=== PATIENT | female | born 1960 | race Two or more races ===

== ENCOUNTER → 2016-10-23 12:08 | Outpatient (CLI) | payer OTHER | END | disposition home or self-care (01) | LOC: D.US 12:08 | DX: I73.9 Peripheral vascular disease, unspecified (principal) ==

== ENCOUNTER → 2019-11-22 18:59 | Outpatient (CLI) | payer OTHER ==
[2019-05-28 09:45] VITALS: BMI 38.5
[~2019-11-22 18:59] MED LIST: MELOXICAM TAB 15M PO; OMEPRAZOLE CAP 20M PO; PERCOCET 5-3251 TAB PO; VISTARIL50 MG PO; VITAMIN D10000 UNI1 PO; ZOFRAN ODT4 MG/UDTAB PO
== END | disposition home or self-care (01) ==
LOC: D.LABREF 18:59
PROVIDERS: ATTEND Orthopaedic Surgery
DX: M17.11 Unilateral primary osteoarthritis, right knee (principal)

== ENCOUNTER 2019-11-26 08:54 | Observation (INO) | payer OTHER ==
[~2019-11-26] VITALS: Ht 160 cm; Wt 98.2 kg
--- NOTE | ~2019-11-26 | HEMODYNAMI ---
PATIENT:DANIEL BOUDREAUX MEDICAL RECORD: [id number] : 58 LOCATION:[facility] D.1211 ADMISSION DATE: 12/21/19 Generatedon:12/21/201915:38 Patient name: DANIEL BOUDREAUX Patient #: [id number] SSN: : 1960 Date of study: 12/21/2019 Page: Of Hemodynamic Procedure Report Patient Data Patient Demographics Procedure consent was obtained First Name: DANIEL Gender: Female Last Name: KANIKA : 1960 Patient #: [id number] Age: 59 year(s) Race: Other Additional ID: [id number] Contact details [address]: [address] [place] [address] State: [place] City: [place] Zip code: [address] Past Medical History Allergies: No known allergies Admission Admission Data Admission Date: 12/21/2019 Admission Time: 8:40 Arrival Date: 12/21/2019 Arrival Time: 0:00 Room #: D.1211 Height (in.): 62.99 BSA: 2 (m2) Height (cm.): 160 BMI: 38.28 (kg/m2) Weight (lbs.): 216.05 Weight (kg.): 98 Lab Results Lab Result Date: 12/21/2019 Lab Result Time: 0:00 Biochemistry Name Units Result Min Max BUN mg/dl 15 --(--*-)-- 7 18 Creatinine mg/dl 0.8 --(-*--)-- 0.6 1.3 eGFR ml/min 76.85896 *-(----)-- 90 120 NONAFRICAN CBC Name Units Result Min Max Hematocrit % 41.1 -*(----)-- 42 54 Hemoglobin g/dl 13.3 -*(----)-- 13.5 17.5 Procedure Procedure Types Cath Procedure Diagnostic Procedure LHC LHC w/Coronaries Procedure Description Procedure Date Procedure Date: 12/21/2019 Procedure Start Time: 15:25 Procedure End Time: 15:35 Procedure Staff Name Function Dimitri Corbin MD Performing Physician Ana Gonzalez, RN Nurse Vicky Patel RT Scrub Zahra Chau RT Monitor Indication Abnormal ECG Procedure Data Cath Procedure Fluoroscopy Diagnostic fluoroscopy Total fluoroscopy Time: 1 time: 1 min min Diagnostic fluoroscopy Total fluoroscopy dose: 391 dose: 391 mGy mGy Contrast Material Contrast Material Type Amount (ml) Isovue 300 51 Entry Location Entry Primary Successful Side Size Upsize Upsize Entry Closure Succes sful Closure Location (Fr) 1 (Fr) 2 (Fr) Remarks Device Remarks Femoral Right 5 Fr Exoseal artery Estimated blood loss: 5 ml Diagnostic catheters Device Type Used For End Catheter Placement MULTIPACK JL 4.0 5Fr Left Coronary catheter Angiography MULTIPACK 3DRC 5Fr Right Coronary catheter Angiography MULTIPACK Pigtail 5 Fr LV Angiography catheter Procedure Complications No complications Procedure Medications Medication Administration Route Dosage Oxygen etCO2 Nasal cannula 2 l/min Heparin Flush Bag added to field 2 bags (1000units/500ml NS) Lidocaine 2% added to field 20 0.9% NaCl I.V. 100 ml/hr Fentanyl I.V. 25 mcg Versed I.V. 0.5 mg Hemodynamics Rest BSA: 2 (m2) HGB: 13.3 (g/dl) O2 Consumption: Estimated: 205.16 (ml/min) O2 Consu mption indexed: Estimated:102.58 (ml/min/m) Heart Rate: 91 (bpm) Pressure Samples Time Site Value (mmHg) Purpose Heart Use Rate(bpm) 15:31 LV 115/17,21 Snapshot 91 15:31 AO 123/82(99) Pullback 93 Gradients Valve Time Site Site 2 Mean SEP/DFP Peak To Heart Use 1 (mmHg) (sec/min) Peak Rate (mmHg) (bpm) Aortic 15:31 LV AO 44 14 93 123/82(99) Calculations Valve P-P Mean Valve Index Valve Source Name Gradient Area Flow (cm2) Aortic 44 44 Snapshots Pre Cath Intra NCS Post Cath Vital Signs Time Heart Resp SPO2 etCO2 NIBP (mmHg) Rhythm Pain Sedation Rate (ipm) (%) (mmHg) Status Level (bpm) 15:17:29 91 15 97 38.1 126/76(99) NSR 0 (11) 10(A) , No pain 15:21:59 93 11 99 40.3 124/80(100) NSR 0 (11) 10(A) , No pain 15:26:32 88 16 100 41.1 116/73(98) NSR 0 (11) 9(A) , No pain 15:30:58 96 13 99 29.8 127/76(102) NSR 0 (11) 9(A) , No pain 15:35:30 89 14 98 34.3 126/76(104) NSR 0 (11) 9(A) , No pain Medications Time Medication Route Dose Verified Delivered Reason Notes Eff ectiveness by by 15:14:49 Oxygen etCO2 2 Ana Ana for low 02 Nasal l/min Carlos Gonzalez sats cannula RN RN 15:14:57 Heparin Flush added 2 Ana Ana used for Bag to bags Carlos Gonzalez procedure (1000units/500ml field RN RN NS) 15:15:06 Lidocaine 2% added 20ml Ana Dimitri for local to vial [facility] anesthetic field STANLEY PEÑA 15:15:30 0.9% NaCl I.V. 100 Ana Ana Per ml/hr Carlos Gonzalez, physician RN RN 15:25:04 Fentanyl I.V. 25 Ana Ana for mcg Carlos Gonzalez, sedation RN RN 15:25:10 Versed I.V. 0.5 Ana Ana for mg Carlos Gonzalez, sedation RN instant printer operator Log Time Note 14:43:10 Informed consent obtained and on chart 14:43:22 Patient Height : 62.99 inches 14:43:27 Patient Weight : 216.05 lbs 14:43:33 Arrival Date: 12/21/2019 12:00:00 AM 14:44:08 Indication : Abnormal ECG 14:45:07 Lab Result : BUN 15 mg/dl 14:45:07 Lab Result : Hematocrit 41.1 % 14:45:07 Lab Result : eGFR NONAFRICAN 76.12570 ml/min 14:45:07 Lab Result : Creatinine 0.8 mg/dl 14:45:07 Lab Result : Hemoglobin 13.3 g/dl 14:45:15 Time tracking: Regular hours (M-F 7:00 - 5:00) 14:45:20 Procedure Status Urgent Heart Cath (IP). 14:45:26 Ana Gonzalez RN sent for patient. Start room use. 14:45:38 Patient allergic to No known allergies 15:09:01 Patient received from Other to CCL 1 Alert and oriented. Tansferred to table in Supine position. 15:09:02 Warm blankets applied, and karl hugger turned on for patient comfort. 15:09:03 Correct patient and procedure confirmed by team. 15:09:03 ECG and BP/O2 sat monitors applied to patient. 15:09:04 Pre-procedure instructions explained to patient. 15:09:04 Pre-op teaching completed and patient verbalized understanding. 15:09:08 H&P Date Dictated: 12/21/2019 Within 30 days and on chart.. 15:14:49 Oxygen 2 l/min etCO2 Nasal cannula was administered by Ana Gonzalez RN; for low 02 sats; Verbal order read back and verified. 15:14:57 Heparin Flush Bag (1000units/500ml NS) 2 bags added to field was administered by Ana Gonzalez RN; used for procedure; Verbal order read back and verified. 15:15:06 Lidocaine 2% 20ml vial added to field was administered by Dimitri Corbin MD; for local anesthetic; Verbal order read back and verified. 15:15:30 0.9% NaCl 100 ml/hr I.V. was administered by Ana Gonzalez RN; Per physician; Verbal order read back and verified. 15:15:56 Vital chart was started 15:15:58 Baseline sample Acquired. 15:16:01 Rhythm: sinus rhythm 15:16:02 Full Disclosure recording started 15:16:24 Family in waiting room. 15:16:25 Patient NPO since Midnight. 15:16:26 Is the patient allergic to Iodine/contrast media? No. 15:16:28 Is patient on blood thinner?No 15:16:29 Patient diabetic? No. 15:16:36 Previous problem with sedation/anesthesia? No ? 15:16:38 Snore? Yes 15:16:38 Sleep apnea? No 15:16:40 Deviated septum? No 15:16:41 Opens mouth fully? Yes 15:16:41 Sticks out tongue? Yes 15:16:43 Airway obstruction? No ? 15:16:44 Dentures? No ? 15:16:48 Pre procedure: right posterior tibial pulse 2+ Normal; easily identifiable; not easily obliterated 15:16:50 Patient pain scale 0/10 ?. 15:16:55 IV patent on arrival in left forearm with 0.9% NaCl at [facility]. 15:16:58 Lab results completed and on chart. 15:17:01 Right groin area was prepped with chlora-prep and draped in sterile fashion 15:17:02 Alarms reviewed by R. N. 15:17:02 Sharps counted by scrub and verified by R.N. 15:17:05 Use device set Femoral Dx 15:17:06 ACIST Syringe (77005) opened to sterile field. 15:17:06 Bag Decanter (2002S) opened to sterile field. 15:17:07 Medline Cath Pack ([id number]) opened to sterile field. 15:17:08 ACIST Hand Control (52034) opened to sterile field. 15:17:08 ACIST Manifold (32752) opened to sterile field. 15:17:08 DIAGNOSTIC Multipack 5Fr catheter set (CI3153) opened to sterile field. 15:17:09 Tegaderm 4 x 4 (1626W) opened to sterile field. 15:17:10 SHEATH 5FR [place] (RNE750) opened to sterile field. 15:17:11 EMERALD Guide Wire (074-208) opened to sterile field. 15:20:12 Physician arrived 15:20:12 --------ALL STOP TIME OUT------ 15:20:13 Final Timeout: patient, procedure, and site verified with staff and physician. All members of the team are in agreement. 15:20:14 Right groin site verified by team. 15:20:16 Fire Safety Assessment: A--An alcohol-based skin anteseptic being used preoperatively., C--Open oxygen or nitrous oxide is being used., D--An ESU, laser, or fiber-optic light is being used. 15:20:19 Physical assessment completed. ASA score P 2 - A patient with mild systemic disease as per Dimitri Corbin MD. 15:21:38 2) 60-89 Mildly reduced kidney function, and other findings (as for stage 1) point to kidney disease. 15:21:46 Maximum allowable contrast dose (3.7 X eGFR X 0.75)213 ml. 15:21:49 Sedation plan: IV Moderate Sedation Medication:Versed, Fentanyl 15:24:16 Procedure started. 15:25:04 Fentanyl 25 mcg I.V. was administered by Ana Gonzalez RN; for sedation; Verbal order read back and verified. 15:25:10 Versed 0.5 mg I.V. was administered by Ana Gonzalez RN; for sedation; Verbal order read back and verified. 15:25:46 Local anesthetic to right femoral artery with Lidocaine 2% by Dimitri Corbin MD.INITIAL ACCESS ONLY 15:26:07 A 5 Fr sheath was inserted into the Right Femoral artery 15:27:13 A MULTIPACK JL 4.0 5Fr catheter was advanced over the wire and used for Left Coronary Angiography. 15:28:02 LCA angiography performed. 15:28:05 Injector settings: Ml/sec: 3, Volume: 6, 15:29:23 Catheter removed. 15:29:27 A MULTIPACK 3DRC 5Fr catheter was advanced over the wire and used for Right Coronary Angiography. 15:30:17 RCA angiography performed. 15:30:22 Injector settings: Ml/sec: 3, Volume: 6, 15:30:25 Catheter removed. 15:30:28 ACCDominant side:Left 15:30:33 A MULTIPACK Pigtail 5 Fr catheter was advanced over the wire and used for LV Angiography. 15:31:17 LV hemodynamics recorded. 15:31:19 LV gram done using MONREAL 15:31:21 Injector settings: Ml/sec: 5, Volume: 15, 15:31:27 EF : 55 % 15:31:36 EXOSEAL 5Fr (EX500) opened to sterile field. 15:31:59 Sheath removed intact; hemostasis achieved with Exoseal to the Right Femoral artery. 15:32:00 Procedure ended.(Physican Out) 15:32:11 Fluoroscopy time 01.00 minutes. 15:32:16 Fluoroscopy dose: 391 mGy 15:32:16 Flurop Dose total: 391 15:32:22 Dose Area Product 70626 mGy/cm. 15:32:29 Contrast amount:Isovue 300 51ml. 15:32:40 Maximum allowable dose exceeded? No. 15:32:41 Sharps counted by scrub and verified by R.N. 15:32:43 Insertion/operative site no bleeding no hematoma. 15:32:46 Post-op/insertion site Right Femoral artery dressed using a 4 x 4 and Tegaderm. 15:32:49 Post Procedure Pulses reassessed and unchanged 15:33:23 Post procedure rhythm: unchanged. 15:33:26 Estimated blood loss: 5 ml 15:33:28 Post procedure instruction explained to patient.Patient verbalizes understanding. 15:33:28 Patient needs reinforcement of post procedure teaching. 15:34:19 Procedure and supply charges have been captured, reviewed, submitted and are correct. 15:34:25 Procedure Complication : No complications 15:34:39 Vital chart was stopped 15:34:44 [facility] Findings: mild to moderate CAD (<70%) 15:34:46 Operative report dictated upon procedure completion. 15:34:47 See physician's report for complete and final results. 15:35:03 Report given to Med/Surg. 15:35:07 Patient transfered to Med/Surg with Stretcher. 15:35:09 Procedure ended. 15:35:09 Full Disclosure recording stopped 15:35:12 End room use (Document Last) 15:35:48 End room use (Document Last) Device Usage Item Name Manufacture Quantity Catalog Hospital Part Current Minimal L ot# / Number Charge Number Stock Stock Serial# Code ACIST Acist 1 78975 304121 830075 546072 20 Syringe Medical (90424) Systems Inc Bag Microtek 1 510194 12688 686160 5 Decanter Medical Inc. () Medline Medline 1 [id number] 077159 64066 936016 5 Cath Pack ([id number]) ACIST Hand Acist 1 29037 878692 378953 672732 5 Control Medical (64154) Systems Inc ACIST Acist 1 93048 870647 353946 725538 5 Manifold Medical (81961) Systems Inc DIAGNOSTIC Cardinal 1 [id number] 359466 25777 705372 30 A [place] 5Fr catheter set (ZB3707) Tegaderm 4 3M 1 1626W 652900 971965 853286 5 x 4 (1626W) SHEATH 5FR Terumo 1 RKQ515 383683 620135 179349 5 [place] (LUB952) [facility] Cardinal 1 502455 388427 895774 571801 5 Guide Wire [facility] (502-910) [facility] Cardinal 1 837542 5 JL 4.0 5Fr Health catheter MULTIPACK Cardinal 1 185233 5 3DRC 5Fr Health catheter MULTIPACK Cardinal 1 584547 5 Pigtail 5 Health Fr catheter EXOSEAL 5Fr Cardinal 1 EX500 276156 705729 619993 10 (EX500) Health Signature Audit [place] Stage Time Signature Unsigned Intra-Procedure 12/21/2019 Zahra Chau 3:36:36 PM RT(R) Intra-Procedure 12/21/2019 Ana Gonzalez, 3:37:54 PM RN Intra-Procedure 12/21/2019 Dimitri Kolb 3:38:48 PM Johan PEÑA [facility] [address] [place] [address]
[2019-12-15 10:20] LABS: BASOPHILS 0.2 % (0-2); EOSINOPHILS 3.5 % (0-7); HEMATOCRIT 41.1 % (36.0-48.0); HEMOGLOBIN 13.3 g/dL (12-16); IMMATURE GRANULOCYTES 0.2 % (0-5); MCH 27.4 pg (26.0-34.0); MCHC 32.4 g/dL (31.0-37.0); MCV 84.7 fL (80.0-100.0); MEAN PLATELET VOLUME 10.3 fL (7.4-10.4); MONOCYTES 8.1 % (2-11); PLATELET COUNT 248 10x3/uL (130-400); RBC 4.85 10x6/uL (4.00-5.40); RDW 13.2 % (11.5-14.5); WBC 4.9 10x3/uL (4.8-10.8)
[2019-12-15 10:21] LABS: BILIRUBIN NEGATIVE (NEGATIVE); KETONE NEGATIVE (NEGATIVE); NITRITE NEGATIVE (NEGATIVE); UROBILINOGEN NORMAL (NORMAL)
[2019-12-15 10:30] LABS: APTT 28.6 SECONDS (22.8-39.4); INR 0.96 (0.85-1.17); PROTIME 12.7 SECONDS (11.6-15.0)
[2019-12-15 10:34] LABS: CALC OSMOLALITY 279 mosm/kg (275-300); CALCIUM 9.1 mg/dL (8.5-10.1); CARBON DIOXIDE 28.9 mmol/L (21.0-32.0); CHLORIDE - SERUM 104 mmol/L (98-107); CREATININE - SERUM 0.8 mg/dL (0.6-1.3); GLUCOSE 102 mg/dL (74-106); POTASSIUM - SERUM 4.1 mmol/L (3.5-5.1); SODIUM 140 mmol/L (136-145); UREA NITROGEN 15 mg/dL (7-18); eGFR NON AFRICAN AMERICAN 77 mL/min (90-120)
[2019-12-21 10:06] VITALS: BP 138/77; BMI 38.3
--- NOTE | 2019-12-21 14:17 | NUR ---
1240 WENT TO ADULT CARE MANAGER PT WITH ANESTHESIA. PT IS JAMAICAN-SPEAKING ONLY. PT DAUGHTER TRANSLATED THAT PT WAS FEELING NAUSEOUS. PT GIVEN A BAG IN CASE OF VOMITING. PT DRY HEAVED NUMEROUS TIMES. NURSE AND ANESTHESIA STAYED IN OUTPATIENT WITH PT UNTIL PT WAS FEELING BETTER. DAUGHTER THOUGHT NAUSEA MAY BE ASSOCIATED WITH "NERVES." DAUGHTER TRANSLATED THAT PT STATED SHE WAS FEELING BETTER. 1250 IN OR WITH PT. PT STARTED FEELING NAUSEOUS AGAIN. DR. YEAGER AND DR. MIDDLETON NOTIFIED. 1317 12-LEAD EKG TAKEN 1323 CASE CANCELLED. PT TAKEN TO HOLDING. CARDIOLOGY TO FOLLOW UP WITH PT.
--- NOTE | 2019-12-21 14:45 | NUR ---
PT IN SURGERY PRE-OP HOLDING. TOP LIFT COMPRESSER CALLED TO PRE-OP. TOP LIFT COMPRESSER PRE-OP MEDICATIONS GIVEN ORDERED. PT RESTING QUIETLY WITH FAMILY AT BEDSIDE.
[2019-12-21 14:53] LABS: BASOPHILS 0.3 % (0-2); EOSINOPHILS 0.5 % (0-7); HEMATOCRIT 38.8 % (36.0-48.0); HEMOGLOBIN 12.5 g/dL (12-16); IMMATURE GRANULOCYTES 0.1 % (0-5); LYMPHOCYTES 11.2 % (15-50); MCH 27.7 pg (26.0-34.0); MCHC 32.2 g/dL (31.0-37.0); MONOCYTES 3.6 % (2-11); NEUTROPHILS 84.3 % (40-80); PLATELET COUNT 215 10x3/uL (130-400); RBC 4.51 10x6/uL (4.00-5.40); RDW 13.5 % (11.5-14.5); WBC 7.7 10x3/uL (4.8-10.8)
[2019-12-21 15:49] LABS: ALT (SGPT) 68 U/L (10-68); CALC OSMOLALITY 282 mosm/kg (275-300); CALCIUM 8.5 mg/dL (8.5-10.1); CARBON DIOXIDE 26.2 mmol/L (21.0-32.0); CHLORIDE - SERUM 105 mmol/L (98-107); CHOL - HDL RATIO 3.7 ratio (2.3-4.1); CHOLESTEROL, TOTAL 202 mg/dL (0-200); CKMB 3.3 U/L (0.0-3.6); CREATINE KINASE 195 UL (21-215); GLUCOSE 120 mg/dL (74-106); HDL CHOLESTEROL 55 mg/dL (32-96); LDL CHOLESTEROL 121 mg/dL (0-100); LDL-HDL RATIO 2.2 ratio (1.5-3.5); POTASSIUM - SERUM 3.5 mmol/L (3.5-5.1); SODIUM 141 mmol/L (136-145); TRIGLYCERIDE 130 mg/dL (30-200); UREA NITROGEN 16 mg/dL (7-18); eGFR NON AFRICAN AMERICAN 60 mL/min (90-120)
[2019-12-21 15:57] LABS: TROPONIN-I 0.326 ng/mL (0.000-0.060)
--- NOTE | 2019-12-21 16:03 | NUR ---
PT ARRIVED BY STRETCHER. PLACED ON MONITORS. ASSESSMENT COMPLETED. VSS AT THIS TIME. PT'S DAUGHTER AT BEDSIDE.
--- NOTE | 2019-12-21 16:18 | NUR ---
RIGHT GROIN DRESSING C/D/I. NO S/S OF HEMATOMA NOTED. CALL LIGHT WITHIN REACH. FAMILY AT BEDSIDE. VSS.
--- NOTE | 2019-12-21 16:26 | NUR ---
DR. MIDDLETON CALLED AND NOTIFIED OF PT'S HEART CATH RESULTS AND PLAN TO KEEP HER OVERNIGHT FOR OBS SINCE SHE HAS HAD A RIGHT KNEE BLOCK ALREADY. HE AGREES WITH PLAN OF CARE. I ALSO GAVE HIM HER ROOM NUMBER.
--- NOTE | 2019-12-21 16:49 | NUR ---
RIGHT GROIN DRESSING C/D/I. NO S/S OF HEMATOMA NOTED. VSS AT THIS TIME. REPORT CALLED TO [facility] ON MED 2. PT'S DAUGHTER NOTIFIED OF ROOM NUMBER.
--- NOTE | 2019-12-21 17:35 | NUR ---
BED REST UP. RIGHT GROIN STABLE.
[2019-12-21 17:37] VITALS: BP 138/77; Ht 160 cm; Wt 98.2 kg
--- NOTE | 2019-12-21 19:17 | NUR ---
REPORT RECEIVED AND ROUNDING COMPLETE. PATIENT LAYING IN BED WITH EYES CLOSED AND BREATHING EVEN AND UNLABORED. DAUGHTER AT BEDSIDE. PATIENT HAS A LEFT AC THAT IS SALINE LOCKED. BED ALARM ON. DAUGHTER STATES SHE IS GOING TO GO HOME FOR AT LITTLE BIT AND THEN WILL RETURN THIS EVENING TO STAY THE NIGHT. NO NEEDS VOICED. CALL LIGHT WIHTIN REACH AND BED IN LOWEST LOCKED POSITION.
[2019-12-21 20:43] VITALS: BP 129/83
[2019-12-22] VITALS: BP 108/62
[2019-12-22 04:00] VITALS: BP 115/69
[2019-12-22 06:17] LABS: APTT 24.8 SECONDS (22.8-39.4); INR 0.99 (0.85-1.17); PROTIME 13.1 SECONDS (11.6-15.0)
[2019-12-22 06:24] LABS: ALBUMIN 3.4 g/dL (3.4-5.0); BILIRUBIN - TOTAL 0.24 mg/dL (0.2-1.3); CALCIUM 8.7 mg/dL (8.5-10.1); CARBON DIOXIDE 24.5 mmol/L (21.0-32.0); CREATININE - SERUM 0.9 mg/dL (0.6-1.3); MAGNESIUM - SERUM 2.2 mg/dL (1.8-2.4)
[2019-12-22 06:28] LABS: ANION GAP 13.8 mmol/L (8-16); POTASSIUM - SERUM 4.3 mmol/L (3.5-5.1)
[2019-12-22 06:51] LABS: BASOPHILS 0.1 % (0-2); EOSINOPHILS 0 % (0-7); HEMATOCRIT 37.5 % (36.0-48.0); HEMOGLOBIN 12.1 g/dL (12-16); IMMATURE GRANULOCYTES 0.2 % (0-5); LYMPHOCYTES 12.4 % (15-50); MCH 27.5 pg (26.0-34.0); MCHC 32.3 g/dL (31.0-37.0); MCV 85.2 fL (80.0-100.0); MEAN PLATELET VOLUME 10.3 fL (7.4-10.4); NEUTROPHILS 82.3 % (40-80); PLATELET COUNT 243 10x3/uL (130-400); RDW 13.5 % (11.5-14.5); WBC 8.6 10x3/uL (4.8-10.8)
[2019-12-22 07:42] VITALS: BP 91/39
--- NOTE | 2019-12-22 09:11 | OP ---
PATIENT NAME: DANIEL BOUDREAUX MEDICAL RECORD: [id number] :58 LOCATION:D.M2 D.2117 ADMISSION DATE:12/21/19 SURGEON: MILAN GARCÍA MD DATE OF OPERATION: 12/21/2019 PROCEDURE: Left heart catheterization, selective coronary angiography, right femoral artery approach. CATHETERS: A 5-Slovak sheath, 5/4 left and right Haroon, 5/4 pig. The procedure was well tolerated. The patient returned to the haddad, sheath removed. ExoSeal device placed. FINDINGS: Left ventriculography in 30-degree MONREAL view: Normal wall motion and normal systolic function. CORONARY ANATOMY: LEFT MAIN: Left main is free of disease. LAD: Free of disease in the diagonal system. CIRCUMFLEX: Free of disease in the marginal system. Some Left dominant system. RIGHT CORONARY ARTERY: Rudimentary, free of disease. IMPRESSION: Normal left ventricular systolic function. Normal coronary anatomy. TRANSINT:[id number] Voice Confirmation ID: [id number] DOCUMENT ID: [id number] MILAN GARCÍA MD at 0911 CC: [id number] DICTATION DATE: 12/21/19 1536 PUBLIC EVENTS FACILITIES RENTAL MANAGER: 12/21/19 2335 ADM IN [place] [id number] [place] [address]
--- NOTE | 2019-12-22 10:32 | NUR ---
IV AND TELEMETRY DCD. DC PLANS GIVEN. UNDERSTANDING VOICED. ESCORTED TO CAR BY W/C.
--- NOTE | 2019-12-22 15:21 | MORECARE ---
CASE MANAGEMENT DISCHARGE SUMMARY PATIENT: DANIEL BOUDREAUX UNIT: [id number] ADM DATE: 12/21/19 AGE: 59 : 58 SEX: F ROOM/BED: D.[facility] AUTHOR: CRISTAL DELGADO PHYSICIAN: REFERRING PHYSICIAN: MADHAV MIDDLETON DO DATE OF SERVICE: 12/22/19 Discharge Plan Patient Name: DANIEL BOUDREAUX Facility: [facility]:[place] : 1960 Planned Disposition: Anticipated Discharge Date: Discharge Date: 12/22/2019 Expected LOS: 0 Initial Reviewer: [email or web address] Initial Review Date: 12/22/2019 Generated: 12/22/19 4:20 pm Patient Name: DANIEL BOUDREAUX Page [id number] at 1521 All edits/amendments must be made on the electronic document DICTATION DATE: 12/22/19 1520 MAINFRAME ANALYST: LYNN 12/22/19 1520 RPT#: [id number] DC DATE:12/22/19 STATUS: DIS IN [facility] [address] [facility] [place] [address] END OF REPORT
== END 2019-12-22 10:33 | disposition home or self-care (01) ==
LOC: D.SDCHOLD 12-15 08:04 → D.M3 12-21 08:40 → OBSVTIME 12-21 08:40 → D.SDCHOLD 12-21 08:40 → D.M3 12-21 08:40 → D.SDCHOLD 12-21 10:45 → D.M3 12-21 13:29 → D.SDCHOLD 12-21 13:45 → D.M2 12-21 16:45
PROVIDERS: Family Medicine; Internal Medicine Interventional Cardiology; ADMIT Orthopaedic Surgery; ATTEND Orthopaedic Surgery
DX: R94.31 Abnormal electrocardiogram [ECG] [EKG] (principal); R11.2 Nausea with vomiting, unspecified; I10 Essential (primary) hypertension; K21.9 Gastro-esophageal reflux disease without esophagitis

== ENCOUNTER → 2020-09-25 14:21 | Outpatient (CLI) | payer OTHER ==
[2019-12-21 17:37] VITALS: BMI 38.3
== END | disposition home or self-care (01) ==
LOC: D.RAD 14:21
PROVIDERS: ATTEND Orthopaedic Surgery
DX: M75.101 Unspecified rotator cuff tear or rupture of right shoulder, not specified as traumatic (principal)